=== PATIENT | male | born 1990 | race Caucasian/White ===

== ENCOUNTER 2023-09-11 13:39 | Emergency (ER) | payer OTHER, SELFPAY ==
[2023-09-11 13:50] VITALS: BP 164/85; PULSE 89; RESP 14; TEMP 37.1; O2SAT 98; BMI 40.1
[2023-09-11 18:23] VITALS: BP 162/97; PULSE 82; O2SAT 99
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
== END 2023-09-11 18:46 | disposition home or self-care (01) ==
PROVIDERS: Emergency Provider Emergency Medicine
DX: M54.50 Low back pain, unspecified (principal); V89.2XXA Person injured in unspecified motor-vehicle accident, traffic, initial encounter
CPT/HCPCS: 99281